=== PATIENT | female | born 1995 | race Caucasian/White ===

== ENCOUNTER 2020-12-08 03:59 | Inpatient (IN) ==
[2020-12-08] MEDS ORDERED: DEXTROSE 5%-LACTATED RINGERS 1,000 ML IV PRN (04:00)
[2020-12-08] MEDS ORDERED: ONDANSETRON 4 MG TAB.RAPDIS PO PRN (04:00)
[2020-12-08] MEDS ORDERED: OXYTOCIN/0.9 % SODIUM CHLORIDE 30 UNITS/500 ML BAG IV ONE ×2 (04:00→08:14)
[2020-12-08] MEDS ORDERED: RINGER'S SOLUTION,LACTATED 1,000 ML IV ONE (04:00)
[2020-12-08] MEDS ORDERED: BUPIVACAINE HCL/0.9 % NACL/PF 250 ML EP PRN (04:26)
[2020-12-08] MEDS ORDERED: ONDANSETRON HCL/PF 2 MG/ML VIAL IV PRN (04:26)
[2020-12-08] MEDS ORDERED: NALOXONE HCL 1 MG/1 ML SYRG IV PRN (04:26)
[2020-12-08] MEDS ORDERED: BUPIVACAINE HCL/PF 30 ML VIAL EP SCH (04:30)
--- NOTE | 2020-12-08 04:54 | ANES ---
Anesthesia Pre Procedure Eval HOME MEDICATIONS prenat.vits,he,drz-sxqj-agpjf 1 tab PO DAILY 05/02/20 [Last Taken Unknown] magnesium 250 mg tablet 500 mg PO DAILY tab 07/04/20 [Last Taken Unknown] Allergies/Adverse Reactions: Allergies Allergy/AdvReac Type Severity Reaction Status Date / Time No Known Allergies Allergy Verified 12/08/20 04:12 - Planned Procedure Planned Procedure: Labor Epidural Medication List Reviewed:: Yes Allergies Verified: Yes Medical History (Last Reviewed 11/28/20 @ 15:41 by Danielle Roman, ROBIN) Ovarian cyst (Acute) U/S on 05/02/20: Left simple ovarian cyst measuring 6.33 x 4.87 cm. Right simple ovarian cyst measuring 2.84 cm Anemia Onset Date: ~08/16/14 with 10/2020 Memory impairment Tobacco abuse Onset Date: ~01/17/14 Eczema Graves disease Onset Date: ~01/17/14 no medication since 2011, started in 2009 Ovarian cyst Onset Date: ~10/29/17 right hemorrhagic cyst 5.5 cm left simple cyst 5.0cm Pharyngitis due to group A beta hemolytic Streptococci (Resolved) Surgical History (Last Reviewed 11/28/20 @ 15:41 by Danielle Roman RN) History of incision and drainage Onset Date: ~10/14/11 Tinguely-pilonidal cyst with I and D Vaginal delivery (Resolved) Family History (Last Reviewed 11/28/20 @ 15:41 by Danielle Roman, RN) Father Cancer throat ca, Pneumonia MRSA (methicillin resistant staph aureus) culture positive Uncle Myocardial infarction age 40 Grandmother Thyroid disease Grandmother Arthritis Grandfather Diabetes Cancer prostate - Anesthesia Assessment and Plan ASA Class: PS, II Anesthesia Type Plan: Epidural
--- NOTE | 2020-12-08 05:29 | ANES ---
Post Anesthesia Assessment - Vital Signs Vitals: Last Vital Signs Temp 36.7 C 12/08/20 05:27 Pulse 80 12/08/20 05:27 Resp 18 12/08/20 05:27 BP 142/67 H 12/08/20 05:27 Pulse Ox 100 12/08/20 05:27 Airway Patency: Normal - Mental Status Level Of Consciousness: Awake - N/V Assessment Nausea/Vomiting Presence: None Dehydration:: No
--- NOTE | 2020-12-08 05:29 | ANES ---
Anesthesia Procedure Note Procedure Note: ANESTHESIA PROCEDURE NOTE Date of Procedure: 12/08/2020. Time of procedure: 514. Performed by: Tao Griffin CRNA All Around Presser: None. Preprocedure diagnosis: Active labor. Post procedure diagnosis: Same. Procedure: Insertion of labor epidural. Indications: The patient is a 25-year-old female in active labor requesting labor epidural for pain management. Findings: See below. Details of the procedure: The patient was placed in a sitting position. DuraPrep as well as Betadine swabs X3 was applied to the patient's back. Patient was then draped in a sterile fashion. Lidocaine 1% was infiltrated to the skin and subcutaneous tissues at the level of the L3-4 interspace. The epidural space was identified using a 18-gauge Tuohy needle with [id number] technique. Epidural catheter was inserted to a depth of 11 centimeters at skin. Negative test dose was elicited using 3 mL of 1.5% preservative-free lidocaine plus epinephrine 1 200,000. The epidural catheter was then taped and secured in place. A loading dose of 8 mL of 0.25% preservative-free bupivacaine was administered to the epidural catheter after negative aspiration for blood and CSF. EBL: Minimal. Fluids: N/A. Specimen: N/A. Post procedure condition: The patient tolerated the procedure well. No complications were noted. Thank you for this consultation. Tao Griffin CRNA
--- NOTE | 2020-12-08 07:12 | HP ---
Chief Complaint - Chief Complaint Date of Service: 12/08/20 Time of Service: 06:00 Chief Complaint: contractions History of Present Illness: 25 yo at 39w4d presents with painful contractions since around 1999 last pm. This complicated by anemia, Grave's dz, and ovarian cyst. Rh positive Rubella immune GBS negative Medical History (Last Reviewed 12/08/20 @ 07:04 by Kirk Poon DO) Ovarian cyst (Acute) U/S on 05/02/20: Left simple ovarian cyst measuring 6.33 x 4.87 cm. Right simple ovarian cyst measuring 2.84 cm Anemia Onset Date: ~08/16/14 with 10/2020 Memory impairment Tobacco abuse Onset Date: ~01/17/14 Eczema Graves disease Onset Date: ~01/17/14 no medication since 2011, started in 2009 Ovarian cyst Onset Date: ~10/29/17 right hemorrhagic cyst 5.5 cm left simple cyst 5.0cm Pharyngitis due to group A beta hemolytic Streptococci (Resolved) Surgical History: Surgical History (Last Reviewed 12/08/20 @ 07:04 by Kirk Poon DO) History of incision and drainage Onset Date: ~10/14/11 Tinguely-pilonidal cyst with I and D Vaginal delivery (Resolved) Family History: Family History (Last Reviewed 12/08/20 @ 07:04 by Kirk Poon DO) Father Cancer throat ca, Pneumonia MRSA (methicillin resistant staph aureus) culture positive Uncle Myocardial infarction age 40 Grandmother Thyroid disease Grandmother Arthritis Grandfather Diabetes Cancer prostate Social History: (Last Updated 12/06/20 @ 16:14 by Kirk Poon DO) Social History: adopted: No retirement: No Marital status: Single household members: family number of children: 1 current occupational status: employed current occupation: Day Care Worker Highest level of school completed/degree received: high school graduate Sexually Active: Yes Service: No Tobacco: Smoking Status: Former smoker second hand exposure: Yes Alcohol: alcohol intake: current alcohol intake frequency: a few times a month details: None since +UPT Substance Use: substance use type: former substance user Dietary Habits: caffeine: Yes caffeine comment: 1 Type: carbonated beverages Exercise: Physical activity type: none Physical activity functional status: normal ROM and activity Review Of Systems (GEN) - Review of Systems Generalized/Overall Review: Present: No Symptoms Reported EENTM: Present: No Symptoms Reported Respiratory: Present: No Symptoms Reported Cardiac: Present: No Symptoms Reported Abdominal: Present: Abdominal Pain - contractions Genitourinary: Present: No Symptoms Reported Musculoskeletal: Present: No Symptoms Reported Neurological: Present: No Symptoms Reported Skin: Present: No Symptoms Reported Endocrine: Present: No Symptoms Reported Immunizations: IMMUNIZATION HX Immunizations Up to Date Yes History of Influenza Vaccine No Hx Pneumococcal Vaccination No Allergies/Adverse Reactions: Allergies Allergy/AdvReac Type Severity Reaction Status Date / Time No Known Allergies Allergy Verified 12/08/20 04:12 Home Medications: HOME MEDICATIONS prenat.vits,he,ydm-zzzd-omxqf 1 tab PO DAILY 05/02/20 [Last Taken Unknown] magnesium 250 mg tablet 500 mg PO DAILY tab 07/04/20 [Last Taken Unknown] Exam - Exam Vital Signs: Vital Signs - Last Taken Temp 36.7 C 12/08/20 05:27 Pulse 80 12/08/20 05:27 Resp 18 12/08/20 05:27 BP 142/67 H 12/08/20 05:27 Pulse Ox 100 12/08/20 05:27 Constitutional: Present: Alert, Oriented x3, Cooperative, Moderate distress - relieved with epidural ENT Exam: Present: hearing grossly normal Breasts: Present: Exam deferred Respiratory: Present: lungs clear, no respiratory distress Cardiovascular/Chest: Present: normal peripheral pulses, regular rate, rhythm, no edema Abdomen: Present: soft, no rebound tenderness, other - gravid /Rectal: Present: Other - Cervix 6/90/-2 Extremity: Present: no pedal edema, no calf tenderness Skin Exam: Present: normal color, warm/dry, no cyanosis Lymphatic: Present: no adenopathy Neurologic: Present: alert, normal mood/affect, oriented x 3 Appearance: Present: appropriate appearance, appropriate insight Eye contact: Present: cooperative, good eye contact Thoughts: Present: normal thought pattern, normal mood /affect Assessment/Plan - Assessment/Plan (1) Labor established Assessment: Admit for routine management of labor. Epidural and pitocin PRN. Problem: Acute (2) Anemia Problem: Acute Qualifiers: Anemia type: iron deficiency (3) Graves' disease in remission Problem: Inactive (4) Ovarian cyst affecting in first trimester, antepartum Problem: Inactive
--- NOTE | 2020-12-08 07:14 | PN ---
Progess Note - Interim Date: 12/08/20 Time: 06:30 Narrative: 12/08/20 07:12 Patient comfortable with epidural except on right side Vital signs stable. FHT: 130 baseline, reassuring contractions q 2-3 min Cervix: 8/90/-2, AROM at 0630-clear Impression: Intrauterine at 39-4/7 weeks in labor Plan: Anticipate normal spontaneous vaginal delivery soon.
[2020-12-08] MEDS ORDERED: HYDROCORTISONE 30 APPL TUBE TP PRN (08:14)
[2020-12-08] MEDS ORDERED: oxyCODONE HCL/ACETAMINOPHEN 1 TAB TABLET PO PRN (08:14)
[2020-12-08] MEDS ORDERED: BENZOCAINE/MENTHOL 81 SPRAY CAN TP PRN (08:14)
[2020-12-08] MEDS ORDERED: GLYCERIN/WITCH HAZEL LEAF 40 APPL BOX TP PRN (08:14)
[2020-12-08] MEDS ORDERED: BISACODYL 10 MG SUPP.RECT RC PRN (08:14)
[2020-12-08] MEDS ORDERED: IBUPROFEN 800 MG TABLET PO PRN (08:14)
[2020-12-08] MEDS ORDERED: SENNOSIDES 8.6 MG TABLET PO PRN (08:14)
--- NOTE | 2020-12-08 08:15 | OR ---
Operative Report - Dictated Report Narrative: Spontaneous vaginal delivery of viable male at 0753 on 12/08/2020 with Apgars 9 and 9, weighing 3930 g in PETER position. Cord clamping delayed approximately 1 minute Placenta delivered complete, intact, with three vessel cord Estimated blood loss: Less than 50 ml Anesthesia: Epidural Lacerations: 3 cm second-degree vaginal laceration repaired with 3-0 Vicryl repeat History for MU History for Definition: * The number of deliveries resulting in a live the patient experienced prior to current hospitalization * The previous delivery of live twins or any live multiple gestation is considered one live event. *If primagravida or nulliparous is documented select zero for the number of previous live births. Live Events: Live Events: 1
[2020-12-08] MEDS: IBUPROFEN 800 MG TABLET PO PRN ×2 (09:13→19:11)
[2020-12-08] MEDS: PRENATAL VITS96/IRON FUM/FOLIC 1 TAB TABLET PO SCH (11:27)
[2020-12-08] MEDS: DOCUSATE SODIUM 100 MG CAPSULE PO SCH ×2 (11:27→21:03)
[2020-12-09] MEDS: DOCUSATE SODIUM 100 MG CAPSULE PO SCH ×2 (08:27→21:43)
[2020-12-09] MEDS: IBUPROFEN 800 MG TABLET PO PRN (08:28)
[2020-12-09] MEDS: PRENATAL VITS96/IRON FUM/FOLIC 1 TAB TABLET PO SCH (08:28)
--- NOTE | 2020-12-09 16:23 | PN ---
Subjective - Date and Time Seen Date: 12/09/20 Time: 16:21 Objective - Vitals Vitals: Last Vital Signs Temp 36.5 C 12/09/20 13:00 Pulse 88 12/09/20 13:00 Resp 16 12/09/20 13:00 BP 123/67 12/09/20 13:00 Pulse Ox 97 12/09/20 13:00 Patient denies complaints. Lochia wnl abdomen - soft, nontender Uterus -firm, at umbilicus - 1 No calf tenderness Impression: day #1 - s/p spontaneous vaginal delivery. Plan: Continue routine care Cauti Physician Documentation - Urinary Catheter Management Urethral (Alejandro) Date of Insertion: 12/08/20 Time of Insertion: 05:45 Date of Removal: 12/08/20 Time of Removal: 07:30 Assessment/Plan - Problems/Diagnosis (1) Labor established Problem: Acute (2) Anemia Problem: Acute Qualifiers: Anemia type: iron deficiency (3) Graves' disease in remission Problem: Inactive (4) Ovarian cyst affecting in first trimester, antepartum Problem: Inactive
[2020-12-10 07:45] VITALS: BP 127/70
[2020-12-10] MEDS: DOCUSATE SODIUM 100 MG CAPSULE PO SCH (09:03)
[2020-12-10] MEDS: PRENATAL VITS96/IRON FUM/FOLIC 1 TAB TABLET PO SCH (09:03)
--- NOTE | 2020-12-10 09:27 | PN ---
Subjective - Date and Time Seen Date: 12/10/20 Time: 09:25 Objective - Vitals Vitals: Last Vital Signs Temp 36.3 C 12/10/20 07:30 Pulse 88 12/10/20 07:30 Resp 16 12/10/20 07:30 BP 127/70 12/10/20 07:30 Pulse Ox 97 12/10/20 07:30 Patient denies complaints. Lochia wnl abdomen - soft, nontender Uterus -firm, at umbilicus - 2 No calf tenderness Impression: day #2 - s/p spontaneous vaginal delivery. Plan: Routine discharge instructions Cauti Physician Documentation - Urinary Catheter Management Urethral (Alejandro) Date of Insertion: 12/08/20 Time of Insertion: 05:45 Date of Removal: 12/08/20 Time of Removal: 07:30 Assessment/Plan - Problems/Diagnosis (1) Labor established Problem: Acute (2) Anemia Problem: Acute Qualifiers: Anemia type: iron deficiency (3) Graves' disease in remission Problem: Inactive (4) Ovarian cyst affecting in first trimester, antepartum Problem: Inactive
--- NOTE | 2020-12-10 09:31 | DS ---
OB Discharge Summary (1) Labor established Status: Acute (2) Anemia Status: Acute Qualifiers: Anemia type: iron deficiency (3) Graves' disease in remission Status: Inactive (4) Ovarian cyst affecting in first trimester, antepartum Status: Inactive Delivery Date: 12/08/20 Delivery Time: 07:53 :: 2 Para:: 2 Gestational weeks:: 39 Gestational days:: 4 Intrapartum Procedures: Spontaneous Vaginal Delivery, Delivered /OP Complications: No Complications Discharge Diagnosis: Term -Delivered - Discharge Information Date of Discharge: 12/10/20 Hospital Course: 25-year-old 2 now para 2 admitted at 39 4/7 weeks for labor. Labor and course were uncomplicated. Discharge Location: Home Disposition: Home self-care Condition: Good Referrals: Ronel Jim MD [Primary Care Provider] - Activity on Discharge:: Activity as tolerated, Pelvic Rest Discharge Diet: General/regular food Additional Patient Instructions (free text): melvina Simons follow up visit is January 02 at 2:[address] Poon. Luis Fernando follow up appt is Friday at [address] Farrell with [facility]. ( [phone] ) His blood type is A+ Discharge weight 7 lbs. 15.7 oz Continue to breastfeed at least every 2-3 hours. If he does not feed well, pump and supplement him. María Elena web consultant's phone number is [phone] Prescriptions (Any new or edited meds): Ibuprofen [Motrin] 200 - 800 mg PO Q6H PRN #100 tab PRN Reason: Pain Complete Home Medications List: Complete Home Medication List: prenat.vits,he,xea-megt-xtmyi 1 tab PO DAILY 05/02/20 magnesium 250 mg tablet 500 mg PO DAILY tab 07/04/20 Ibuprofen [Motrin] 200 - 800 mg PO Q6H PRN #100 tab 12/08/20 - Plan Discharge to:: Home Follow up in office in:: 3-4 weeks - [place] Information Weight (Grams): 3,930 Sex: Male Score 1 min: 9 Score 5 min: 9 Complications: None
== END 2020-12-10 14:45 | disposition home or self-care (01) | DRG 807 ==
LOC: OB 03:59
PROVIDERS: ADMIT Obstetrics & Gynecology; ATTEND Obstetrics & Gynecology